=== PATIENT | female | born 1980 | race Caucasian/White ===

== ENCOUNTER 2020-01-11 14:53 | Outpatient (CLI) | payer MEDICAID, SELFPAY ==
[2020-01-11 18:29] LABS: Abs Immature Grans 0.02 k/cumm (0.0-0.09); Absolute Basophil Count 0.01 k/cumm (0.0-0.2); Absolute Eosinophil Count 0.22 k/cumm (0.0-0.7); Absolute Lymphocyte Count 3.16 k/cumm (1.2-3.4); Absolute Monocyte Count 0.54 k/cumm (0.11-0.7); Basophils % 0.1; Eosinophils % 2.2; HCT 40.6 % (36.0-46.0); HGB 13.7 g/dL (12.0-15.5); Immature Grans % 0.2 %; Lymphocytes % 32.1; Mean Corp. HGB Concentration 33.7 g/dL (32.0-36.0); Mean Corpuscular Hemoglobin 31.1 pg (27.0-33.0); Mean Corpuscular Volume 92.1 fL (80-95); Mean Platelet Volume 10.7 fL (8.0-11.0); Monocytes % 5.5; Neutrophils % 59.9; Platelet Count 202 x1000/uL (130-400); RBC 4.41 m/cumm (4.00-5.20); RBC Distribution Width 13.2 % (11.7-14.6); White Blood Cell Count 9.85 k/cumm (4.4-10.8)
[2020-01-11 18:39] LABS: TSH (W/Ref FT4) 1.23 uIU/mL (0.36-3.74)
[2020-01-11 19:40] LABS: *AMPHETAMINES SCREEN URINE Negative (Negative); *BARBITURATES SCREEN URINE Negative (Negative); *BENZODIAZEPINES SCREEN URINE Negative (Negative); Cannabinoids THC POSITIVE (Negative); Cocaine Screen,Urine Negative (Negative); METHADONE URINE SCREEN Negative (Negative); OPIATES URINE SCREEN Negative (Negative)
[2020-01-11 19:45] LABS: Tricyclic Antidepressants Negative (Negative)
[2020-01-15 11:04] LABS: Hepatitis B Surface Ag Negative (Negative)
[2020-01-15 11:53] LABS: HIV-1/2 Ag & Ab Screen Negative (Negative)
[2020-01-15 11:54] LABS: Hepatitis C Ab w Rflx HCV PCR Negative (Negative)
[2020-01-15 15:41] LABS: Chlamydia Result Negative (Negative); GC Result Negative (Negative)
[2020-01-16 09:32] LABS: Buprenorphine Negative; Norbuprenorphine Negative
[2020-01-16 11:47] LABS: Varicella IgG Antibody Positive (See Note)
[2020-01-16 11:49] LABS: Syphilis Serology (RPR) Negative (Negative)
[2020-01-16 12:01] LABS: Rubella IgG Ab (UVM) Positive (See Note)
== END 2020-01-11 15:13 ==
PROVIDERS: PCP Internal Medicine; Visit Provider Advanced Practice Midwife
DX: Z34.91 Encounter for supervision of normal pregnancy, unspecified, first trimester (principal); Z11.59 Encounter for screening for other viral diseases; Z11.4 Encounter for screening for human immunodeficiency virus [HIV]; Z01.84 Encounter for antibody response examination
CPT/HCPCS: 80307; 86787; 86803; 86850; 86900; 86901; 87340; 87389; 87491; 87591; 84443; 85025; 86592; 86762; 86780

== ENCOUNTER 2020-02-22 01:54 | Outpatient (CLI) | payer MEDICAID, SELFPAY ==
--- NOTE | 2020-02-22 11:30 | DI.US_ITS ---
EXAM: US OB 2-3 TRIMESTER CLINICAL HISTORY: rajwinder reagan,Z34.90. TECHNIQUE: Transabdominal obstetrical ultrasound performed. COMPARISON: No exams were available for comparison FINDINGS: Number of fetuses: One. position: Variable heart rate: 136 bpm. Placental grade: 0 to 1 Placental location: Posterior. No evidence of previa. BIOMETRIC DATA: BPD: 40 millimeters, 18 weeks 1 day HC: 150 millimeters, 18 weeks 1 day AC: 129 millimeters, 18 weeks 3 days FL: 26 millimeters, 18 weeks 0 days Cisterna Magna: 3.4 millimeters Cerebellum: 1.1 cm EFW: 229 grms 49% Composite Age: 18+ 1 weeks EDC by US: 24 July 2020 Amount of amniotic fluid is within visually normal limits. ANATOMICAL SURVEY: Four-chambered heart: Unremarkable. LVOT: Unremarkable. RVOT: Unremarkable. Left-sided stomach: Unremarkable. urinary bladder: Unremarkable. Bilateral kidneys: Unremarkable. Three-vessel cord: Unremarkable. Cord insertion: Unremarkable. Umbilical artery velocity: Unremarkable. Posterior fossa:Unremarkable. ventricles: Unremarkable. nose: Unremarkable. lips: Unremarkable. palate: Unremarkable. spine: Unremarkable. Two arms and two legs: Unremarkable. IMPRESSION: 1. Single live intrauterine gestation measuring 18 weeks 1 day. 2. Normal anatomic survey. DATA REPOSITORY:
== END 2020-02-22 02:14 ==
PROVIDERS: PCP Internal Medicine; Visit Provider Advanced Practice Midwife
DX: Z34.92 Encounter for supervision of normal pregnancy, unspecified, second trimester (principal); Z3A.18 18 weeks gestation of pregnancy
CPT/HCPCS: 76805

== ENCOUNTER 2020-02-22 12:33 | Outpatient (REF) | payer MEDICAID, SELFPAY ==
[2020-02-24 11:05] LABS: Syphilis Total Ab w/Reflex Nonreactive (Nonreactive)
== END 2020-02-22 12:53 ==
LOC: LBN 12:33
PROVIDERS: PCP Internal Medicine; Visit Provider Advanced Practice Midwife
DX: Z11.3 Encounter for screening for infections with a predominantly sexual mode of transmission (principal)
CPT/HCPCS: 86780

== ENCOUNTER 2020-05-06 02:20 | Outpatient (CLI) | payer MEDICAID, SELFPAY ==
[2020-05-06 11:41] LABS: HCT 34.1 % (36.0-46.0); HGB 11.2 g/dL (11.2-15.7); MCH 31.2 pg (27.0-33.0); MCHC 32.8 % (32.0-36.0); MPV 9.9 fL (8.0-11.0); Platelet Count 180 10^3/uL (130-400); RBC 3.59 10^6/uL (3.93-5.22); RDW 12.7 % (11.7-14.6); RDW-SD 43.8 fL; WBC 8.42 10^3/uL (4.4-10.8)
[2020-05-06 11:50] LABS: Glucose,1 Hr (Glucola) 166 mg/dL (80-140)
== END 2020-05-06 02:40 ==
PROVIDERS: PCP Internal Medicine; Visit Provider Advanced Practice Midwife
DX: Z34.90 Encounter for supervision of normal pregnancy, unspecified, unspecified trimester (principal)
CPT/HCPCS: 36415; 82950; 85027

== ENCOUNTER 2020-05-21 01:53 | Outpatient (CLI) | payer MEDICAID, SELFPAY ==
[2020-05-21 13:38] LABS: Glucose 1 Hour 178 mg/dL
[2020-05-21 15:37] LABS: Glucose 3 Hour 121 mg/dL
== END 2020-05-21 02:13 ==
PROVIDERS: Advanced Practice Midwife; PCP Internal Medicine; Visit Provider Advanced Practice Midwife
DX: R73.09 Other abnormal glucose (principal)
CPT/HCPCS: 36415; 82951

== ENCOUNTER 2020-06-20 01:28 | Outpatient (CLI) | payer MEDICAID, SELFPAY ==
--- NOTE | 2020-06-20 08:00 | DI.US_ITS ---
EXAM: US OB TAM WEIGHT CLINICAL HISTORY: s</=d,z34.90. TECHNIQUE: Transabdominal obstetrical ultrasound performed. COMPARISON: US US OB 2-3 TRIMESTER from 02/22/2020 FINDINGS: Transabdominal obstetrical ultrasound performed. FINDINGS: Number of fetuses: One. position: Cephalic Placental location: Anterior no evidence of previa. BIOMETRIC DATA: EFW: 2405 grms 25% Composite Age: 33 weeks 6 days EDC: 08/02/2020 Heart Rate: 121BPM Amniotic fluid index: 12 cm. Visually, amount of fluid is within normal limits. IMPRESSION: 1. Single live intrauterine gestation as above. 2. Estimated weight is 2405gms. 3. Amniotic fluid index is 12 cm. Visually within normal limits. DATA REPOSITORY:
== END 2020-06-20 01:48 ==
PROVIDERS: PCP Internal Medicine; Visit Provider Advanced Practice Midwife
DX: Z34.93 Encounter for supervision of normal pregnancy, unspecified, third trimester (principal)
CPT/HCPCS: 76816

== ENCOUNTER 2020-06-28 18:58 | Outpatient (REF) | payer MEDICAID, SELFPAY ==
[2020-06-28 20:12] LABS: *AMPHETAMINES SCREEN URINE Negative (Negative); *BARBITURATES SCREEN URINE Negative (Negative); *BENZODIAZEPINES SCREEN URINE Negative (Negative); Cannabinoids THC Negative (Negative); Cocaine Screen,Urine Negative (Negative); METHADONE URINE SCREEN Negative (Negative); OPIATES URINE SCREEN Negative (Negative)
[2020-06-28 20:22] LABS: Tricyclic Antidepressants Negative (Negative)
[2020-07-09 11:57] LABS: Buprenorphine Negative; Norbuprenorphine Negative
== END 2020-06-28 19:18 ==
LOC: LBN 18:58
PROVIDERS: PCP Internal Medicine; Visit Provider Advanced Practice Midwife
DX: Z34.93 Encounter for supervision of normal pregnancy, unspecified, third trimester (principal); Z36.85 Encounter for antenatal screening for Streptococcus B; Z3A.36 36 weeks gestation of pregnancy
CPT/HCPCS: 80307; 87081

== ENCOUNTER 2020-07-03 05:29 | Inpatient (IN) | payer MEDICAID, SELFPAY ==
[2020-07-03] VITALS (10 sets, daily range): BP systolic 123–143; BP diastolic 82–103; PULSE 73–88; RESP 14–18; TEMP 36.4–37.3; O2SAT 98
[2020-07-03 05:52] LABS: HGB 13.1 g/dL (11.2-15.7); MCH 31.3 pg (27.0-33.0); MCHC 33.6 % (32.0-36.0); MCV 93.1 fL (80-95); MPV 9.8 fL (8.0-11.0); Platelet Count 207 10^3/uL (130-400); RBC 4.19 10^6/uL (3.93-5.22); RDW 13.2 % (11.7-14.6); RDW-SD 44.5 fL; WBC 10.43 10^3/uL (4.4-10.8)
--- NOTE | 2020-07-03 06:15 | W.PM.OBHPL1 ---
Date of service: 07/03/20 Time of Service: 05:30 Assessment and Plan Assessment and plan (1) Elderly multigravida in third trimester: Status: Acute Assessment and plan: 40 yo called @ 0430 reporting contractions since 043 and vaginal spotting, arrived at the ED @ 0530, RN sent from to assist pt from car to wheelchair at which time her water broke. RN brought her to , pt moaning and having frequent contractions, assisted to bed and examined, SROM confirmed, 9 cm and vtx @ +2, FHT @ 120's spontaneous pushing began immediately and of vigorous female , controlled over sterile field. See delivery note. A: multipara, delivered at the time of this writing, low risk for SD or PPH P: Routine PP care (2) Term delivered: Status: Acute OB-HPI Labor/Delivery History of Present Illness Reason for Visit: RULE OUT LABOR Chief Complaint: Uterine Contractions; Suspected Labor. LUIS MANUEL Calculator Estimated Delivery Date Method Current WG Current Estimate 07/24/20 Ultrasound #1 37w 0d Other Estimates 07/28/20 LMP (Uncertain) 36w 3d History of Present Expected Delivery Route/Plan - CNM FOB/ - Vazquez [place]foux BG GBS Negative Specific Issues/Plan 1. AMA; Declines MFM consult, level II usg and optional labs. Declination signed. 2. Jehovahs Witness, Discuss Blood transfusion @ 2nd pnv. 2a. Opposed to blood transfusion, is OK with autologous transfusion, will bring an advanced directive card to scan into EMR 3. Wearing compression stocking on right leg (behind knee) for varicose veins 4. Elevated glucola result 166 at 28 wks, 3 hr GTT 87, 178, 150, 121 5.Tdap- declined. al 6. US for size less than dates - EFW 25%ile. Normal TAM Review of Systems All systems reviewed & are unremarkable except as noted in HPI and below Constitutional Constitutional: Reports as per HPI and Reports difficulty sleeping Cardiovascular Cardiovascular: Reports as per HPI Respiratory Respiratory: Reports as per HPI Gastrointestinal Gastrointestinal: Reports as per HPI Genitourinary Genitourinary: Reports system reviewed and no additional complaints, except as documented Psychiatric Psychiatric: Reports system reviewed and no additional complaints, except as documented COUNTS INCLUDE 234 BEDS AT THE [facility] Medical History (Updated 07/03/20 @ 06:27 by Yelena Dubon) Surgical History (Updated 07/13/18 @ 14:36 by [employer] [place]) Dilation and curettage Family History (Updated 01/11/20 @ 14:07 by Shaheen Baez CNM) Brother Alcohol abuse Father Heart disease coronary bypass quadruple Hyperlipidemia Hypertension Cancer bladder cancer Paternal Grandfather Heart disease triple coronary bypass, w/ 2 stint repalcements Diabetes amputee x1 leg. Mother Hyperlipidemia Hypertension Arthritis, rheumatoid Maternal Grandmother Colon cancer Social History Smoking/Tobacco Use Status: Former Tobacco Use History History 5 Para 3 Hx # Term Pregnancies 3 Multiple births 0 Hx # Pregnancies 0 Ectopic pregnancies 0 AB induced 0 Hx Number of Living Children 3 AB spontaneous 1 Past Pregnancies Del. Date GA/Weeks # Outcome Route Wgt Sex Labor Lgth Anesthesia Location Prov Complic 12/17/03 40 No Successful vaginal 7 lb 1 oz Female 16 hrs [facility] 10/20/06 41 No Successful vaginal 7 lb 11 oz Male 8 hrs [facility]. 12/26/17 41 No Successful vaginal 6 lb 9 oz Female 4 hrs [facility] Delivery Date: 12/17/03 w/o c/o. BRIAN,ANEA Delivery Date: 10/20/06 w/o c/o BRIAN,ANEA Delivery Date: 12/26/17 w/o c/o. back labor, nubain given for pain. Kathi Martinez Home Medications and Allergies Home Medications Medication Instructions Recorded Confirmed Type vit,[id number] 1 ea PO BID 05/14/17 06/28/20 History [Prenatabs Rx Tablet] Breast Pump ea MISCELLANEOUS ONCE #1 12/31/17 Clinic Allergies Allergy/AdvReac Type Severity Reaction Status Date / Time Penicillins Allergy RASH Unverified 06/28/20 16:00 Sulfa (Sulfonamide Allergy RASH Unverified 06/28/20 16:00 Antibiotics) Exam Physical Exam Vital Signs Reviewed: Yes Constitutional Constitutional: average body habitus Comments: arrived to unit in active labor Detailed Labor and Delivery Exam Dilation: 9 Effacement (%): 100 station: +2 Consistency: soft Haywood Score: Cervical Points Exam 0 1 2 3 Dilation Closed 1-2cm 3-4 cm 5-6cm Effacement 0-30% 40-50% 60-70% 80% Consistency Firm Medium Soft Station -3 -2 -1,0 +1,+2 Position Posterior Mid Anterior Amniotic Membrane Status: Ruptured (SROM clear fluid in parking lot by ED) Rupture Method: Spontaneous Amniotic Fluid: Clear Monitor Mode: External Contraction Frequency(min): every 2 minutes Contraction Duration(sec): 90 Contraction Intensity: Strong Fetus A Heart Rate Baseline: 120 Est. Weight: 5 lb 15.24 oz Est. Weight: 2700 gms Date of Membrane Rupture: 07/03/20 Time of Membrane Rupture: 05:30 Assessment Note: FHT not categorized, delivered upon arrival to unit HEENT Exam HEENT Exam: Normal Neck Exam Neck Exam: Normal Chest/Brest/Axilla Exam Chest Exam: Normal Breast Exam Breast Exam: Normal Respiratory Exam Respiratory Exam: Normal Cardiovascular Exam Cardiovascular Exam: Normal Abdominal Exam Abdominal Exam: Normal (gravid) Rectal Exam Rectal Exam: Normal Exam Exam: Normal Extremities Exam Extremities Exam: Normal Back/Spine/Pelvis Exam Back Exam: Normal Pelvis Adequate: Yes Skin Exam Skin Exam: Normal Neurological Exam Neurological Exam: Normal Psychiatric Exam Psychiatric Exam: Normal Results Results Group Beta Strep: Negative Risk Assessment Risk for Shoulder Dystocia Historical/Initial OB: NEGATIVE FOR: Pelvic Abnormality, Pre- BMI>30, Previous Shoulder Dystocia or Previous Macrosomia Increased Risk?: No (As of iob al) Risk for Pre-Eclampsia Daily Dose ASA Indicated: No (01/11/20 al) Date Initiated/Initials: 01/11/20 al Yes, if one or more: NEGATIVE FOR: Hx Pre-E/Gest HTN, Chronic HTN, Multiple Gestation, Pre-gestational DM, Renal Disease, Systemic Lupus or APA Syndrome Yes, if 2 or more: POSITIVE FOR: Age>= 35 yrs; NEGATIVE FOR: Nulliparity, >10yr btwn pregnancies, BMI>30, ethinicty, Mother/Sister w/ Pre-E or Previous IUGR Risk for Post- Hemorrhage Initial: NEGATIVE FOR: Multiple Gestation, Previous PPH, Known Clotting Deficiency, Grand Multiparity or Anticoagulation At Risk?: No (as of iob 01/11/20 al) Risks Reviewed Risks Reviewed Upon Admission: Yes
[2020-07-03] MEDS: Oxytocin 10 UNITS/ML VIAL IM (06:35)
--- NOTE | 2020-07-03 07:49 | OBVDS_ITS ---
Date of service: 07/03/20 Time of Service: 06:00 OB Labor/ Delivery Information Baby A Delivery Delivery Method: Spontaneaous Presentation: Cephalic Cephalic Position: Vertex Breech Position: N/A Cord Description-Baby A: 3 Vessels Amniotic Fluid: Clear Estimated Blood Loss: 200 Delivery Outcome: Liveborn Transferred: Remains with Mother Note: Upon arrival to via wheelchair pt was assisted to bed supported by FOB, SROM of clear fluid was grossly confirmed as clothing was removed, FHT per external monitor was 120's, VE for 9/100 vtx +2, pt had spontaneous urges to bear down, 2nd stage huddle deferred, of a vigorous female infant over intact perineum with easy shoulders accomplished moments later. CNM controlled delivery of head over sterile field, cord was short preventing infant from being placed on mother's abdomen. After 2-3 minutes cord was clamped and cut by FOB and to mother's arms, 10 units pitocin given IM, Fox placenta intact with 3VC, cord blood collected, first degree vaginal/perineal lac repaired with 2 interrupted stitches of 3.0 Vicryl to approximate edges. Family bonding excellent. Providers Nurse Cooker Pie Filling: Yelena Dubon Nurse: Rox Cassidy Nurse: Mi Mcdonough Labor/Delivery Information Number of Babies in Womb: 1 Steroids Given: None Reason Steroids Not Administered: N/A Group Beta Strep: Negative Antibiotics Administered: No Rubella Status: Immune Blood Type: O+ Varicella Immunity: Immune Maternal Complications: None Shoulder Dystocia: No Stages of Labor Onset of Labor Date: 07/03/20 Onset of Labor Time: 04:00 Complete Dilatation Date: 07/03/20 Complete Dilatation Time: 05:45 Labor - Stage 1 Duration: 0 minutes ROM Baby A: 07/03/20 ROM Baby A: 05:30 ROM Total Time- Baby A: [id number] Delivery Date-Baby A: 07/03/20 Infant Delivery Time-Baby A: 05:47 Labor Stage 2 Duration: 2 minutes Placenta Delivery Date-Baby A: 07/03/20 Placenta Delivery Time-Baby A: 05:57 Labor-Stage 3 Duration: 10 minutes Total Length of Labor-Baby A: 1 hours and 47 minutes Placenta Cultured: No Placenta Status: Delivered Baby A Gender: Female Gestational Status: Early Term Gestational Age in Weeks/Days: 37 Weeks and 0 Days weight: 5 lb 8.714 oz Weight Comment: 2515 gms Score-1 Minute Interval(Baby A) Heart Rate-1 minute: 100 BPM or Greater Respiratory Effort- 1 minute: Slow Respiration/Weak Cry Muscle Tone-1 minute: Active Movement Reflex Response-1 minute: Prompt Response Color-1 minute: Bluish Hands or Feet Total Score-1 minute: 8 Score-5 Minute Interval(Baby A) Heart Rate- 5 minute: 100 BPM or Greater Respiratory Effort-5 minute: Spontaneous/Strong Cry Muscle Tone-5 minute: Active Movement Reflex Response-5 minute: Prompt Response Color-5 minute: Bluish Hands or Feet Total Score- 5 minute: 9 Procedure Procedures: Cord Blood Collection Interventions Repair of Laceration Laceration Extension: First Degree . Sponge Count Correct: N/A , Sharp Count Correct: N/A . Laceration Repair Note: 2 interrupted of 3.0 Vicryl to approximate edges
[2020-07-03 14:25] LABS: COVID-19 RT-PCR UVMMC Result Negative (Negative)
[2020-07-03 22:06] LABS: HCT 37.4 % (36.0-46.0); HGB 12.5 g/dL (11.2-15.7); MCH 31.1 pg (27.0-33.0); MCHC 33.4 % (32.0-36.0); MPV 9.9 fL (8.0-11.0); Platelet Count 198 10^3/uL (130-400); RBC 4.02 10^6/uL (3.93-5.22); RDW-SD 45.1 fL; WBC 14.65 10^3/uL (4.4-10.8)
[2020-07-03 22:20] LABS: ALT 24 U/L (14-59); AST 42 U/L (15-37); Albumin 2.9 g/dL (3.4-5.0); Alkaline Phosphatase 166 U/L (46-116); Anion Gap 6.5 mmol/L (3-11); BUN 10 mg/dL (7-18); Bilirubin, Total 0.3 mg/dL (0.2-1.0); CO2 27.5 mmol/L (21.0-32.0); Calcium 9.3 mg/dL (8.5-10.1); Chloride 99 mmol/L (98-107); Glucose 86 mg/dL (74-106); Potassium 3.7 mmol/L (3.5-5.1); Sodium 133 mmol/L (136-145); Total Protein 7.1 g/dL (6.4-8.2)
[2020-07-04 00:26] VITALS: BP 128/86; PULSE 79; RESP 18
[2020-07-04 04:29] VITALS: BP 123/76; PULSE 73
[2020-07-04] MEDS: Ibuprofen 600 MG TAB PO (05:58)
[2020-07-04] MEDS: Acetaminophen 325 MG TAB 650 MG PO (05:59)
[2020-07-04 06:14] VITALS: BP 130/87; PULSE 74
[2020-07-04 08:00] VITALS: BP 117/79; PULSE 68; RESP 14; TEMP 37
--- NOTE | 2020-07-04 10:59 | W.PM.OBDISCH ---
Date of service: 07/04/20 Time of Service: 09:00 DS: Diagnosis Discharge Diagnosis (1) Elderly multigravida in third trimester: Status: Acute (2) Term delivered: Status: Acute (3) Hypertension, condition or complication: Status: Acute Asessment and Plan: Caring for baby independently. Taking oral analgesics. Voiding without difficulty. well. B.P. was elevated last evening 130s/90s. Iesha reports that she was experiencing cramping and is 'stubborn' about asking for pain medication. Preeclampsia labs were ordered and all WNL with slightly elevated AST at 42. She slept during the night and B.P. was WNL all night. A - stable mother and baby , Post day 2, hypertension. P - Discharge to home . Routine post instructions. [facility] for B.P. check. Iesha has a B.P. cuff at home and she was encouraged to take her B.P. daily and report high readings. Discharge Plan Disposition Patient Disposition: HOME Condition: Good Discharge Details Reason For Visit: RULE OUT LABOR Admit Date/Time: 07/03/20 05:29 Admit Provider: Yelena Dubon Attending Provider: Yelena Dubon Primary Care Provider: Viola Caceres Home Meds and New Rx's Prescriptions: No Action Prenatabs Rx 1 EACH tablet 1 ea PO BID RF: 0 Breast Pump EACH Miscellaneous ONCE Qty: 1 RF: 0 Discharge Instructions Stand Alone Forms: BC Post Vaginal Deliver Activity:: Activity as Tolerated Equipment/Supplies:: No Equipment Needed Diet:: As Tolerated Discharge Orders Discharge Orders: Discharge Order (Routine); Ordered 07/04/20 Ordered By: Kathi Martinez Discharge Data Discharge Date/Time-TO BE ENTERED AT DEPARTURE: 07/04/20 10:15 OB:DS Summary Summary Vaginal Delivery Method: Spontaneaous Episiotomy Description: None Laceration Description: Perineal Laceration Extension: First Degree Contraception Discussed Contraception Discussed: Yes (POP and vasectomy planned. ), Gender-Baby A: Female weight: 5 lb 8.714 oz Status at Discharge Functional status at discharge: independent ambulation Overall status at discharge: patient is back to baseline Mental Status: mental status grossly normal Speech and Movement: speech and movement normal Mood: congruent mood Affect: normal affect Exam Physical Exam Vital signs: Temp Pulse Resp BP Pulse Ox 98.6 F 68 14 117/79 98 07/04/20 08:00 07/04/20 08:00 07/04/20 08:00 07/04/20 08:00 07/03/20 15:38 Constitutional Constitutional: no acute distress HEENT Exam HEENT Exam: Normal Respiratory Exam Respiratory Exam: Normal Cardiovascular Exam Cardiovascular Exam: Normal Fundal Exam Fundus: Below Umbilicus and Firm Rectal Exam Rectal Exam: Normal Extremities Exam Extremity Exam: Normal Skin Exam Skin Exam: Normal Psychiatric Exam Psychiatric Exam: Normal [facility] Medical History (Updated 07/04/20 @ 11:03 by Kathi Martinez CNM) Surgical History (Updated 07/13/18 @ 14:36 by [employer] [place]) Dilation and curettage Family History (Updated 01/11/20 @ 14:07 by Shaheen Torres CNM) Brother Alcohol abuse Father Heart disease coronary bypass quadruple Hyperlipidemia Hypertension Cancer bladder cancer Paternal Grandfather Heart disease triple coronary bypass, w/ 2 stint repalcements Diabetes amputee x1 leg. Mother Hyperlipidemia Hypertension Arthritis, rheumatoid Maternal Grandmother Colon cancer Social History Smoking/Tobacco Use Status: Former Tobacco Use History History 5 Para 3 Hx # Term Pregnancies 3 Multiple births 0 Hx # Pregnancies 0 Ectopic pregnancies 0 AB induced 0 Hx Number of Living Children 3 AB spontaneous 1 Past Pregnancies Del. Date GA/Weeks # Outcome Route Wgt Sex Labor Lgth Anesthesia Location [facility] 12/17/03 40 No Successful vaginal 7 lb 1 oz Female 16 hrs [facility] 10/20/06 41 No Successful vaginal 7 lb 11 oz Male 8 hrs [facility] 12/26/17 41 No Successful vaginal 6 lb 9 oz Female 4 hrs [facility] Delivery Date: 12/17/03 w/o c/o. SHAHEEN TORRES Delivery Date: 10/20/06 w/o c/o SHAHEEN TORRES Delivery Date: 12/26/17 w/o c/o. back labor, nubain given for pain. Kathi Martinez DS: Data Vitals/I&O Vitals and I&O: Vital Signs Temperature 98.6 F 07/04/20 08:00 Pulse 68 07/04/20 08:00 Pulse Rhythm Regular 07/04/20 08:00 Respiratory Rate 14 07/04/20 08:00 Respiratory Depth Normal 07/03/20 15:36 Blood Pressure 117/79 07/04/20 08:00 Blood Pressure Mean 91 07/04/20 08:00 Pulse Oximetry 98 07/03/20 15:38 Pain Level 0 07/04/20 08:00 Comment 07/04/20 06:14 Intake & Output 07/03/20 07/03/20 07/04/20 11:59 23:59 11:59 Other: Urine Color Yellow Data Completed and Pending Labs on day of discharge: Labs from last 24 hours 07/03/20 07/03/20 07/03/20 22:00 22:00 21:35 WBC 14.65 H D RBC 4.02 Hgb 12.5 Hct 37.4 MCV 93.0 MCH 31.1 MCHC 33.4 RDW 13.0 Plt Count 198 MPV 9.9 Sodium 133 L Cancelled Potassium 3.7 Cancelled Chloride 99 Cancelled Carbon Dioxide 27.5 Cancelled Anion Gap 6.5 Cancelled BUN 10 Cancelled Creatinine 0.70 Cancelled Estimated GFR/1.73 m2 >= 60.00 Cancelled Glucose 86 Cancelled Uric Acid 4.0 Cancelled Calcium 9.3 Cancelled Total Bilirubin 0.3 Cancelled AST 42 H Cancelled ALT 24 Cancelled Alkaline Phosphatase 166 H Cancelled Total Protein 7.1 Cancelled Albumin 2.9 L Cancelled COVID-19 PCR Nasopharyn COVID-19 PCR Ref Test Perform Site 07/03/20 05:55 WBC RBC Hgb Hct MCV MCH MCHC RDW Plt Count MPV Sodium Potassium Chloride Carbon Dioxide Anion Gap BUN Creatinine Estimated GFR/1.73 m2 Glucose Uric Acid Calcium Total Bilirubin AST ALT Alkaline Phosphatase Total Protein Albumin COVID-19 PCR Negative Nasopharyn COVID-19 PCR Not Applicable Ref Test Perform Site [facility] lab
== END 2020-07-04 10:15 | disposition home or self-care (01) | DRG 807 ==
PROVIDERS: Advanced Practice Midwife; Admitting Provider Advanced Practice Midwife; PCP Internal Medicine; Visit Provider Advanced Practice Midwife
DX: O70.0 First degree perineal laceration during delivery (principal); Z37.0 Single live birth; O69.3XX0 Labor and delivery complicated by short cord, not applicable or unspecified; Z3A.37 37 weeks gestation of pregnancy; Z67.40 Type O blood, Rh positive; O09.523 Supervision of elderly multigravida, third trimester; O16.5 Unspecified maternal hypertension, complicating the puerperium
CPT/HCPCS: 80053; 85027; 86850; 86900; 86901; U0003; 84550; J2590

== ENCOUNTER 2021-09-08 12:32 | Outpatient (REF) | payer MEDICAID, SELFPAY ==
--- NOTE | 2021-09-08 11:45 | PAPFT_PTH ---
PATIENT: Iesha Garg LOC: [facility]#:[id number] AGE/SX: 41/F ROOM: RE09/08/[address]: PB Benavides : 1980 BED: DIS: 09/08/2021 SPEC #: [id number] RECD: 09/08/21 13:05 STATUS: KATHIE REQ #: [id number] REJI: 09/08/21 11:[address]: Lauren Park DEPT: [facility] Cytology RECD BY: Beth De La Fuente ENTERED: 09/08/21 13:05 SP TYPE: PAPFT OTHR DR: Viola Caceres Tissues: 1 - CX/ENDOCX FOR PAP SMEARS Procedures: PAP THIN PREP/UVM Screening HPV DNA PROBE Comments: [id number]
== END 2021-09-08 12:33 | disposition home or self-care (01) ==
LOC: LBN 12:32
PROVIDERS: PCP Internal Medicine; Visit Provider Nurse Practitioner Family
DX: Z12.4 Encounter for screening for malignant neoplasm of cervix (principal); Z11.51 Encounter for screening for human papillomavirus (HPV)
CPT/HCPCS: 88142; 87624

== ENCOUNTER 2021-12-16 02:27 | Outpatient (CLI) | payer MEDICAID, SELFPAY ==
[2021-12-16 11:03] LABS: Abs Immature Grans 0.01 10^3/uL (0.0-0.06); Absolute Basophil Count 0.03 10^3/uL (0.0-0.2); Absolute Eosinophil Count 0.09 10^3/uL (0.0-0.7); Absolute Lymphocyte Count 2.01 10^3/uL (1.2-3.4); Absolute Monocyte Count 0.36 10^3/uL (0.1-0.8); Absolute Neutrophil Count 2.27 10^3/uL (1.2-6.7); Basophils % 0.6; Eosinophils % 1.9; HCT 40.5 % (36.0-46.0); HGB 13.4 g/dL (11.2-15.7); Immature Grans % 0.2; Lymphocytes % 42.1; MCH 31.8 pg (27.0-33.0); MCHC 33.1 % (32.0-36.0); MCV 96.2 fL (80-95); MPV 9.8 fL (8.0-11.0); Monocytes % 7.5; Neutrophils % 47.7; Nucleated RBC 0 %; Platelet Count 242 10^3/uL (130-400); RBC 4.21 10^6/uL (3.93-5.22); RDW 12.7 % (11.7-14.6); WBC 4.77 10^3/uL (4.4-10.8)
[2021-12-16 12:06] LABS: Source Nasal/Nares
[2021-12-16 14:10] LABS: COVID-19 PCR Negative (Negative)
== END 2021-12-16 02:28 | disposition home or self-care (01) ==
PROVIDERS: PCP Internal Medicine; Visit Provider Obstetrics & Gynecology
DX: Z20.822 Contact with and (suspected) exposure to COVID-19 (principal); Z30.2 Encounter for sterilization; Z01.818 Encounter for other preprocedural examination; Z01.812 Encounter for preprocedural laboratory examination
CPT/HCPCS: 36415; 86850; 86900; 86901; 87635; 85025

== ENCOUNTER 2021-12-16 02:42 | Outpatient (CLI) | payer MEDICAID, SELFPAY | END 2021-12-16 02:43 | disposition home or self-care (01) | LOC: LBO 02:42 | PROVIDERS: PCP Internal Medicine; Visit Provider Obstetrics & Gynecology ==

== ENCOUNTER 2021-12-18 06:15 | Day surgery (SDC) | payer MEDICAID, SELFPAY ==
--- NOTE | 2021-12-17 15:21 | ANES.PREOP_ITS ---
General Info Date of Service Date Performed: 12/18/21 Height: 5 ft 1.5 in Weight: 64.467 kg Body Mass Index (BMI): 26.4 Surgical Procedure: Operation Date: 12/18/21 07:40 Proposed Procedure Side Surgeon p Salpingectomy Laparoscopic Bilateral Rachana Santos DO Meds Allergies and Home Medications Allergies Allergy/AdvReac Type Severity Reaction Status Date / Time Penicillins Allergy RASH Verified 12/18/21 06:25 Sulfa (Sulfonamide Allergy RASH Verified 12/18/21 06:25 Antibiotics) Home Medication Medication Instructions Recorded Unknown [No Known Home Meds] 12/16/21 Current Visit Medications: Current Medications Generic Name Dose Route Start Last Admin Trade Name Freq PRN Reason Stop Dose Admin Ringer's Solution 1,000 mls @ 125 mls/hr 12/18/21 06:00 IV 01/16/22 23:59 INFUSION AUNDREA IV Miscellaneous Supplies 1 each 12/18/21 06:00 Iv Access IV 01/16/22 23:59 DIRECTED AUNDREA Sodium Chloride 0 ml 12/18/21 06:00 Normal Saline Flush 10 Ml Syr IV 01/16/22 23:59 PRN PRN Sodium Chloride 0 ml 12/18/21 06:00 Normal Saline 10 Ml Vial IJ 01/16/22 23:59 DIRECTED PRN Sterile Water 0 ml 12/18/21 06:00 Water,Injection,Sterile 10 Ml Vial IJ 01/16/22 23:59 DIRECTED PRN PFSH Active Problems Active Problems: Problem Status Onset Code Unwanted fertility Z30.09 Elevated blood pressure reading R03.0 Contraception Z30.9 Medical History Medical History Elderly multigravida in third trimester Hypertension affecting in first trimester Term delivered Surgical History Surgical History Dilation and curettage Tobacco Smoking/Tobacco Use Status: Former Tobacco Use Alcohol Alcohol Intake: current Alcohol intake frequency: a few times a week Substance Use Substance use: Never Substance use type: does not use Prental History History 5 Para 3 Hx # Term Pregnancies 3 Multiple births 0 Hx # Pregnancies 0 Ectopic pregnancies 0 AB induced 0 Hx Number of Living Children 3 AB spontaneous 1 Past Pregnancies Del. Date GA/Weeks # Outcome Route Wgt Sex Labor Lgth Anesthes ia Location Prov Complic 12/17/03 40 No Successful vaginal 3203.496 g Female 16 hrs [facility] 10/20/06 41 No Successful vaginal 3486.991 g Male 8 hrs [facility] 12/26/17 41 No Successful vaginal 2976.7 g Female 4 hrs [facility] 07/03/20 37 No Successful vaginal 2515 g Female 1 hour 47 min MICHELINE Kate Delivery Date: 12/17/03 Last Updated by: Shaheen Baez CNM w/o c/o. Delivery Date: 10/20/06 Last Updated by: Shaheen Baez CNM w/o c/o Delivery Date: 12/26/17 Last Updated by: MICHELINE Leovd w/o c/o. back labor, nubain given for pain. Delivery Date: 07/03/20 Last Updated by: XIMENA Tubbs Vital Signs and Lab Results Vital Signs Most Recent Vital Signs in EMR: Temp Pulse Resp BP Pulse Ox 36.8 C 87 16 133/104 H 100 12/18/21 06:26 12/18/21 06:26 12/18/21 06:26 12/18/21 06:26 12/18/21 06:26 Lab Results Blood Type / Crossmatch: Patient ABO/Rh O Positive 12/16/21 Antibody Screen NEGATIVE 12/16/21 Complete Blood Count: White Blood Count 4.77 10^3/uL (4.4-10.8) 12/16/21 10:53 12/16/21 Red Blood Count 4.21 10^6/uL (3.93-5.22) 12/16/21 10:53 12/16/21 Hemoglobin 13.4 g/dL (11.2-15.7) 12/16/21 10:53 12/16/21 Hematocrit 40.5 % (36.0-46.0) 12/16/21 10:53 12/16/21 Platelet Count 242 10^3/uL (130-400) 12/16/21 10:53 12/16/21 Complete Metabolic Panel: No Data to Display Liver Function Panel: No Data to Display Coagulation Panel: No Data to Display Cardiac Panel: No Data to Display Arterial Blood Gas: No Data to Display Venous Blood Gas: No Data to Display Pancreas Panel: No Data to Display Thyroid Panel: No Data to Display Infectious Disease: Coronavirus (COVID-19)(PCR) Negative (Negative) 12/16/21 11:00 12/16/21 Coronavirus 2019 Source Nasal/Nares 12/16/21 11:00 12/16/21 Blood Cultures: No Data to Display Toxicology Panel: No Data to Display Panel: No Data to Display Anesthesia Assessment and Plan Anesthesia History Personal History: No History of Anesthesia Complications Family History: No Family History of Anesthesia Complications Exercise Tolerance Exercise Tolerance: Metabolic Equivalents>4 Cardiac & Pulmonary Exam Cardiac Exam: Normal S1/S2 Heart Sounds Pulmonary Exam: Clear Bilateral Breath Sounds Implantable Cardiac Device Does patient have a Pacemaker or an ICD?: No Airway Exam Known Difficult Airway: No Mallampati Class: 1 Mouth Opening: Normal (> 3cm) Thyromental Distance: Greater than 3 cm Neck Range of Motion: Full ROM Neck Circumference: Normal Teeth Condition: Normal Dentition ASA Classification ASA Score: ASA 2 Emergency Case?: No NPO Status NPO Status: NPO Clears >2 hours, Solids >8 hours Status Status: Negative HCG Anesthesia Plan Resuscitation Status: Full Code Anesthesia Technique: General Anesthesia Airway Planned: Endotracheal Tube Monitors Used: Standard Monitors Preoperative Comments:: 41 yo female for lap salpingectomy. Sig PMHx: HTN, former smoker, occ EtOH
[2021-12-18 06:26] VITALS: BP 133/104; PULSE 87; RESP 16; TEMP 36.8; O2SAT 100
[2021-12-18 06:48] VITALS: BMI 26.4
[2021-12-18] MEDS: Lactated Ringers 1,000 ML 125 ML IV (06:53)
--- NOTE | 2021-12-18 08:07 | FALL_PTH ---
PATIENT: Iesha Garg LOC: [facility] U#:[id number] AGE/SX: 41/F ROOM: RE12/18/[address]: Rachana Santos DO : 1980 BED: DIS: 12/18/2021 SPEC #: [id number] RECD: 12/18/21 12:54 STATUS: KATHIE REQ #: [id number] REJI: 12/18/21 08:[address]: aRchana Santos DEPT: Surgical Specimen RECD BY: Beth De La Fuente ENTERED: 12/18/21 12:55 SP TYPE: Fall OTHR DR: Viola Caceres Tissues: 1 - FALLOPIAN TUBE (STERILIZATION) 2 - FALLOPIAN TUBE (STERILIZATION) Procedures: GROSS AND MICRO LEVEL 2 Comments: [id number]
[2021-12-18] MEDS: Bupivacaine 0.25% Pres-Free 30 ML VIAL (08:18)
[2021-12-18 08:29] VITALS: BP 73/54; PULSE 79; RESP 16; TEMP 36.7; O2SAT 98
[2021-12-18 08:34] VITALS: BP 115/65; PULSE 77; RESP 15; TEMP 36.7; O2SAT 98
--- NOTE | 2021-12-18 08:36 | W.PM.OP ---
Date of service: 12/18/21 Time of Service: 08:36 Operative Note Operative Note DATE OF PROCEDURE: 12/18/21 PRE-OP DIAGNOSIS: Unwanted fertility Same PROCEDURE: Bilateral laparoscopic salpingectomy SURGEON: Rachana Santos FACTORY ASSEMBLER: Marline Garnett ANESTHESIA TYPE: General LMA/ETT Refer to Anesthesia Record ESTIMATED BLOOD LOSS: 10 PATHOLOGY: other (1. Right fallopian tube 2. Left fallopian tube) COMPLICATIONS: None Patient was transported to: PACU Patient's condition: stable Implants: None Indications: Unwanted fertility Findings: Normal-appearing tubes, ovaries, uterus. No intra-abdominal pathology. Normal-appearing appendix Procedure Description: After full informed consent was obtained and negative status verified, patient was taken the operating suite with an IV running. She was placed in the dorsal supine position and endotracheal intubation performed for the administration of general anesthesia with ease. She was then placed in the modified dorsolithotomy position in [facility] stirrups and prepped and draped in the usual sterile fashion. Exam under anesthesia revealed a uterus that is midline and mobile. At this point speculum was inserted into the vaginal vault and a single-tooth tenaculum was used to grasp the anterior lip of the cervix. A [employer] uterine manipulator was placed within for uterine manipulation. Speculum was removed. Attention was then turned to the abdomen where quarter percent Marcaine was used to infiltrate at the umbilical area. A vertical skin incision of 10 mm was made. And to abdominal wall was elevated and varies needle inserted. Was at maximum pressure of 15 mmHg CO2 gas was used to create a pneumoperitoneum. Once pneumoperitoneum was created a 12 mm Optiview port was inserted into the abdomen under direct visualization. There was no evidence of trauma to surrounding organs. A second and third right and left lower quadrant trocar site was placed after infiltration of quarter percent Marcaine. A 5 mm ports were placed. At this point all small bowel was swept out of the cul-de-sac and uterus, tubes, ovaries identified. The right fallopian tube was elevated and cautery transected and removed through the 10 mm port. Similar procedure was carried out on the right fallopian tube. All pedicles were hemostatic. At this point, procedure was terminated. CO2 gas was discontinued and removed from the abdomen. All trochars were removed from the abdomen. The fascial incision at the umbilicus was closed with a simple interrupted stitch of 0 Vicryl suture. The skin edge was reapproximated with 4-0 Monocryl suture and Steri-Strips were placed. All incisions were hemostatic. At this point sterile dressings were placed and the [employer] uterine manipulator was removed from the cervix. Puncture sites were found to be hemostatic. Patient was returned to the dorsal supine position and awoke from anesthesia with ease. She was taken recovery room in stable condition. EBL: 10 mL Findings: Normal-appearing tubes, ovaries, uterus Complications: None apparent Pathology: 1. Right fallopian tube 2. Left fallopian tube. Fluids: Steroid per anesthesia
[2021-12-18 08:39] VITALS: BP 106/59; PULSE 76; RESP 16; TEMP 36.7; O2SAT 98
[2021-12-18 08:52] VITALS: BP 128/92; PULSE 71; RESP 16; TEMP 36.4; O2SAT 99
--- NOTE | 2021-12-18 08:56 | W.ANESPOSTOP ---
Postoperative Evaluation Date, Time and Location Date Performed: 12/18/21 Time Performed: 08:56 Patient Location: PACU Vital Signs Most Recent Imported Vital Signs: Most Recent Vital Signs Temp Pulse Resp BP Pulse Ox 36.4 C L 71 16 128/92 H 99 12/18/21 08:52 12/18/21 08:52 12/18/21 08:52 12/18/21 08:52 12/18/21 08:52 Pain Score Most Recent Pain Score: Most Recent Pain Score Pain Level 0 12/18/21 08:52 Assessment Mental Status: Awake (Alert & Oriented to Patient Baseline) Airway and Respiratory Function: Patent airway with normal (patient baseline) respiratory exam Cardiovascular Function: Hemodynamically Stable Hydration Status: Adequately Hydrated Nausea & Vomiting: No Nausea or Vomiting Pain: Pain is tolerable per patient Peripheral Nerve Block: Patient did not receive a nerve block
[2021-12-18 09:25] VITALS: BP 144/101; PULSE 66; RESP 16; TEMP 36.4; O2SAT 100
== END 2021-12-18 09:39 | disposition home or self-care (01) ==
PROVIDERS: PCP Internal Medicine; Visit Provider Obstetrics & Gynecology
PROC: (CPT 58661; principal; 2021-12-18 07:30)
DX: Z30.2 Encounter for sterilization (principal)
CPT/HCPCS: 58661; 88302; J0131; J1100; J1885; J2001; J2405; J2704; J3475

== ENCOUNTER → 2022-01-29 01:50 | Outpatient (CLI) | payer MEDICAID, SELFPAY ==
--- NOTE | 2022-01-29 09:45 | DI.MAMMO_ITS ---
Exam(s) MAMMO SCREENING EXAM: MAMMO SCREENING CLINICAL HISTORY: screening TECHNIQUE: Mammograms were interpreted according to the usual protocol including computer analysis w [employer] CAD system, tomosynthesis and C-view imaging. COMPARISON: FINDINGS: Today's examination is a baseline examination. The breasts are heterogeneously dense. No dominant m ass or clumped microcalcification is identified in either breast. IMPRESSION: No specific evidence of malignancy at this time. Routine screening examinations are suggested yearly intervals in this age group according to the ACR guidelines. BI-RADS Category 1 - Negative Breast Density - Category C - Heterogeneously dense
== END ==
PROVIDERS: PCP Internal Medicine; Visit Provider Obstetrics & Gynecology
DX: Z12.31 Encounter for screening mammogram for malignant neoplasm of breast (principal)
CPT/HCPCS: 77063; 77067